=== PATIENT | female | born 1980 | race American Indian/Alaskan Native ===

== ENCOUNTER 2018-10-21 18:16 | Emergency (ER) | payer MEDICAID ==
[2018-10-21 19:11] LABS: Basophils # (Auto) 0.1 K/mm3 (0.0-0.1); Basophils % (Auto) 1.1 % (0.0-1.8); Eosinophils % (Auto) 0.4 % (0.0-4.3); Hematocrit 35.8 % (30.3-42.9); Hemoglobin 11.8 gm/dl (10.1-14.3); Lymphocytes # (Auto) 2.4 K/mm3 (1.2-5.4); Lymphocytes % (Auto) 37.1 % (13.4-35.0); Mean Corpuscular HGB Conc 33 % (30-34); Mean Corpuscular Volume 92 fl (79-97); Monocytes # (Auto) 0.3 K/mm3 (0.0-0.8); Monocytes % (Auto) 4.9 % (0.0-7.3); Platelet Count 146 K/mm3 (140-440); Red Blood Count 3.89 M/mm3 (3.65-5.03); Red Cell Distribution Width 14.1 % (13.2-15.2)
[2018-10-21 19:32] LABS: Alanine Aminotransferase 10 units/L (7-56); BUN/Creatinine Ratio 14; Blood Urea Nitrogen 11 mg/dL (7-17); Calcium 9.6 mg/dL (8.4-10.2); Hemolysis Index 4
--- NOTE | 2018-10-21 20:33 | XRay Report ---
CHEST 2 VIEWS INDICATION / CLINICAL INFORMATION: MAIN: Chest Pain started this morning. COMPARISON: None available. FINDINGS: SUPPORT DEVICES: None. HEART / MEDIASTINUM: No significant abnormality. LUNGS / PLEURA: No significant pulmonary or pleural abnormality. No pneumothorax. ADDITIONAL FINDINGS: No significant additional findings. IMPRESSION: 1. No acute findings. Signer Name: Martín Hurley MD Signed: 10/21/2018 8:28 PM Workstation Name: [id number]
[2018-10-21] MEDS ORDERED: MORPHINE IV STA ×2 (22:22→23:59)
[2018-10-21] MEDS ORDERED: ZOFRAN IV STA (22:22)
[2018-10-21] MEDS ORDERED: NACL 0.9% 1000 ML 1,000 ML IV ONE (22:22)
--- NOTE | 2018-10-21 23:14 | Cat Scan Report ---
CT ABDOMEN AND PELVIS WITH CONTRAST HISTORY: Lower abdominal pain. COMPARISON: No relevant prior imaging study available. TECHNIQUE: Axial, coronal and sagittal CT imaging of the abdomen and pelvis was performed after inje ction of 100 mL Omnipaque [address] scans at this location are performed using CT dose re duction for ALARA by means of automated exposure control. FINDINGS: LOWER CHEST: No significant abnormality. LIVER: No significant abnormality. BILIARY: No significant abnormality. PANCREAS: No significant abnormality. SPLEEN: No significant abnormality. ADRENALS: No significant abnormality. 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 No additional significant abnormality. GI TRACT: No significant abnormality of the stomach, small bowel or colon. The appendix is not well- visualized. No suspicious infiltrate changes are noted along the right lower quadrant. PERITONEUM: No free fluid. No free air. No fluid collection. LYMPH NODES: No significant adenopathy. VASCULATURE: No significant abnormality. URINARY BLADDER: No significant abnormality. REPRODUCTIVE ORGANS: No significant abnormality. ADDITIONAL FINDINGS: None. SKELETAL SYSTEM: No significant abnormality. IMPRESSION: 1. No acute abnormality of the abdomen or pelvis. 2. Additional findings as above. Signer Name: Matt Perez MD Signed: 10/21/2018 11:10 PM Workstation Name: [id number]
[2018-10-21] MEDS ORDERED: TORADOL IV STA (23:59)
--- NOTE | 2018-10-22 | Emergency Department Report ---
ED Abdominal Pain HPI - General Chief Complaint: Chest Pain Stated Complaint: CHEST PAIN Time Seen by Provider: 10/21/18 22:45 Source: patient Mode of arrival: Wheelchair Limitations: No Limitations - History of Present Illness MD Complaint: abdominal pain -: Sudden, hour(s) Location: LLQ Radiation: none, LLQ Severity scale (0 -10): 7 Quality: sharp Consistency: constant Improves With: nothing Worsens With: movement Associated Symptoms: denies: nausea, vomiting, diarrhea, constipation, dysuria, hematemesis, hematuria, anorexia, syncope - Related Data Previous Rx's Medication Instructions Recorded Last Taken Type Hyoscyamine Subl [Levsin Sl 0.125 0.125 mg SL Q6HR PRN #20 tab 10/21/18 Unknown Rx TAB] Ketorolac [Toradol] 10 mg PO Q6H PRN #15 tablet 10/21/18 Unknown Rx Ondansetron [Zofran ODT TAB] 8 mg PO Q12HR #14 tab.rapdis 10/21/18 Unknown Rx Ciprofloxacin HCl [Ciprofloxacin 500 mg PO Q12HR #20 tab 10/22/18 Unknown Rx TAB] Phenazopyridine [Pyridium] 200 mg PO TID #9 tab 10/22/18 Unknown Rx Allergies Allergy/AdvReac Type Severity Reaction Status Date / Time No Known Allergies Allergy Verified 10/21/18 18:20 ED Review of Systems ROS: Stated complaint: CHEST PAIN Other details as noted in HPI Comment: All other systems reviewed and negative ED Past Medical Hx - Social History Smoking Status: Current Every Day Smoker Substance Use Type: Alcohol - Medications Home Medications: Home Medications Medication Instructions Recorded Confirmed Last Taken Type Hyoscyamine Subl [Levsin Sl 0.125 0.125 mg SL Q6HR PRN #20 tab 10/21/18 Unknown Rx TAB] Ketorolac [Toradol] 10 mg PO Q6H PRN #15 tablet 10/21/18 Unknown Rx Ondansetron [Zofran ODT TAB] 8 mg PO Q12HR #14 tab.rapdis 10/21/18 Unknown Rx Ciprofloxacin HCl [Ciprofloxacin 500 mg PO Q12HR #20 tab 10/22/18 Unknown Rx TAB] Phenazopyridine [Pyridium] 200 mg PO TID #9 tab 10/22/18 Unknown Rx ED Physical Exam - General Limitations: No Limitations General appearance: alert, in no apparent distress - Head Head exam: Present: atraumatic, normocephalic - Eye Eye exam: Present: normal appearance - ENT ENT exam: Present: normal exam, mucous membranes moist - Neck Neck exam: Present: normal inspection - Respiratory Respiratory exam: Present: normal lung sounds bilaterally. Absent: respiratory distress - Cardiovascular Cardiovascular Exam: Present: regular rate, normal rhythm. Absent: systolic murmur, diastolic murmur, rubs, gallop - GI/Abdominal GI/Abdominal exam: Present: soft, tenderness (left lower quadrant. Rovsing sign is negative. T sign, no pereira chakraborty, ozzy and mcburney's,), normal bowel sounds - Extremities Exam Extremities exam: Present: normal inspection, full ROM, normal capillary refill - Back Exam Back exam: Present: normal inspection - Neurological Exam Neurological exam: Present: alert, oriented X3, CN II-XII intact - Psychiatric Psychiatric exam: Present: normal affect, normal mood - Skin Skin exam: Present: warm, dry, intact, normal color. Absent: rash ED Course Vital Signs 10/21/18 10/21/18 10/21/18 18:19 22:52 23:22 Temperature 98.7 F Pulse Rate 73 Respiratory 16 16 18 Rate Blood Pressure 138/94 O2 Sat by Pulse 99 Oximetry 10/22/18 10/22/18 10/22/18 00:06 00:08 00:31 Temperature Pulse Rate Respiratory 16 16 18 Rate Blood Pressure O2 Sat by Pulse Oximetry ED Medical Decision Making - Lab Data Result diagrams: 10/21/18 18:36 10/21/18 18:36 - Radiology Data Radiology results: report reviewed (CT scan is negative for acute pathology) - Medical Decision Making 37-year-old gentleman female with onset of left lower quadrant abdominal pain. CT scan laboratory data showed no acute findings. She did report having bloody urine. Urinalysis did show evidence of urinary tract infection. Will be covered. She is tolerating oral with no complications. There is no nausea or vomiting. Pain is controlled with with with the medication. Icing it. She does report some pressure to the to the bladder region with urination Critical care attestation.: If time is entered above; I have spent that time in minutes in the direct care of this critically ill patient, excluding procedure time. ED Disposition Clinical Impression: Abdominal pain, UTI (urinary tract infection) Disposition: DC- TO HOME OR SELFCARE Is pt being admited?: No Condition: Stable Instructions: Phenazopyridine (By mouth), Urinary Tract Infection in Women (ED), Dysuria (ED), Abdominal Pain (ED) Additional Instructions: Please be sure to follow with the [facility] for your abdominal pain. Follow [facility] for urinary tract infection. Reevaluation Prescriptions: Ciprofloxacin HCl [Ciprofloxacin TAB] 500 mg PO Q12HR #20 tab Hyoscyamine Subl [Levsin Sl 0.125 TAB] 0.125 mg SL Q6HR PRN #20 tab PRN Reason: abdominal cramps and spasms Phenazopyridine [Pyridium] 200 mg PO TID #9 tab Ketorolac [Toradol] 10 mg PO Q6H PRN #15 tablet PRN Reason: Pain Ondansetron [Zofran ODT TAB] 8 mg PO Q12HR #14 tab.rapdis Referrals: [facility] [Provider Group] - 3-5 Days HORATIO BLANKA DHILLON MD [Primary Care Provider] - 3-5 Days
[2018-10-22 00:17] LABS: Bacteria,Urine 1+ /HPF (Negative); Bilirubin,Urine NEG (Negative); Blood,Urine LG (Negative); Color,Urine Yellow (Yellow); Mucus,Urine 3+ /HPF; Urobilinogen,Urine < 2.0 mg/dL (<2.0)
[2018-10-22 00:19] LABS: RBC,Urine > 182.0 /HPF (0.0-6.0)
[2018-10-22] MEDS ORDERED: LEVAQUIN PO STA (00:54)
[2018-10-22 02:05] VITALS: BP 132/78
== END 2018-10-22 01:40 | disposition home or self-care (01) ==
LOC: ED 18:16
DX: N39.0 Urinary tract infection, site not specified (principal); F17.200 Nicotine dependence, unspecified, uncomplicated; Z79.899 Other long term (current) drug therapy
CPT/HCPCS: 36415; 71046; 74177; 80053; 81001; 83690; 84484; 84703; 85025; 87086; 96374; 96375; 96376; 99284; J1885; J2270; J2405; J7030; Q9967; 96361

== ENCOUNTER 2020-04-03 11:30 | Emergency (ER) | payer SELFPAY ==
[2020-04-03 11:37] VITALS: BP 128/80
--- NOTE | 2020-04-03 11:42 | Event Note ---
ED Screening Note ED Screening Note: pain and swelling right ankle sp rolling it this AM This initial assessment/diagnostic orders/clinical plan/treatment(s) is/are subject to change based on patients health status, clinical progression and re- assessment by fellow clinical providers in the ED. Further treatment and workup at subsequent clinical providers discretion. Patient/guardian urged not to elope from the ED as their condition may be serious if not clinically assessed and managed. Initial orders include: xray ro fx
--- NOTE | 2020-04-03 12:00 | XRay Report ---
RIGHT ANKLE 3 VIEW(S) INDICATION / CLINICAL INFORMATION: SWELLING/ PAIN COMPARISON: None available. FINDINGS: BONES / JOINT(S): No acute fracture or subluxation. Ankle mortise is symmetric. No significant arthri tis. SOFT TISSUES: There is soft tissue swelling of the medial hindfoot. ADDITIONAL FINDINGS: None. IMPRESSION: Soft tissue swelling of the medial hindfoot. No acute osseous findings identified. Signer Name: Martín Suarez MD Signed: 04/03/2020 11:55 AM Workstation Name: [id number]
[2020-04-03] MEDS ORDERED: IBUPROFEN 800 MG TAB PO ONE (12:03)
--- NOTE | 2020-04-03 12:04 | Emergency Department Report ---
ED Extremity Problem HPI - General Chief complaint: Extremity Injury, Lower Stated complaint: RT FOOT PAIN Time Seen by Provider: 04/03/20 11:38 Source: patient Mode of arrival: Wheelchair Limitations: No Limitations - History of Present Illness Initial comments: 39 yo sp rolling her r ankle this am. no fall. co swelling and pain with ambulation no other injury MD Complaint: extremity pain -: Gradual Location: right History of Same: No Radiation: none Quality: aching Consistency: constant Improves with: nothing Worsens with: walking Associated Symptoms: denies other symptoms - Related Data Previous Rx's Medication Instructions Recorded Last Taken Type Hyoscyamine Subl [Levsin Sl 0.125 0.125 mg SL Q6HR PRN #20 tab 10/21/18 Unknown Rx TAB] Ketorolac [Toradol] 10 mg PO Q6H PRN #15 tablet 10/21/18 Unknown Rx Ondansetron [Zofran ODT TAB] 8 mg PO Q12HR #14 tab.rapdis 10/21/18 Unknown Rx Ciprofloxacin HCl [Ciprofloxacin 500 mg PO Q12HR #20 tab 10/22/18 Unknown Rx TAB] Phenazopyridine [Pyridium] 200 mg PO TID #9 tab 10/22/18 Unknown Rx Naproxen [Naprosyn TAB] 500 mg PO BID #20 tablet 09/24/19 Unknown Rx Nitrofurantoin Sterling/M-Cryst 100 mg PO Q12HR #20 capsule 09/24/19 Unknown Rx [Macrobid CAP] Ibuprofen [Motrin] 800 mg PO Q8HR PRN #30 tablet 04/03/20 Unknown Rx Allergies Allergy/AdvReac Type Severity Reaction Status Date / Time No Known Allergies Allergy Verified 04/03/20 11:33 ED Review of Systems ROS: Stated complaint: RT FOOT PAIN Other details as noted in HPI Comment: All other systems reviewed and negative ED Past Medical Hx - Past Medical History Previous Medical History?: Yes Hx Asthma: Yes - Surgical History Past Surgical History?: Yes Additional Surgical History: ectopic - Family History Family history: no significant - Social History Smoking Status: Never Smoker Substance Use Type: None - Medications Home Medications: Home Medications Medication Instructions Recorded Confirmed Last Taken Type Hyoscyamine Subl [Levsin Sl 0.125 0.125 mg SL Q6HR PRN #20 tab 10/21/18 Unknown Rx TAB] Ketorolac [Toradol] 10 mg PO Q6H PRN #15 tablet 10/21/18 Unknown Rx Ondansetron [Zofran ODT TAB] 8 mg PO Q12HR #14 tab.rapdis 10/21/18 Unknown Rx Ciprofloxacin HCl [Ciprofloxacin 500 mg PO Q12HR #20 tab 10/22/18 Unknown Rx TAB] Phenazopyridine [Pyridium] 200 mg PO TID #9 tab 10/22/18 Unknown Rx Naproxen [Naprosyn TAB] 500 mg PO BID #20 tablet 09/24/19 Unknown Rx Nitrofurantoin Sterling/M-Cryst 100 mg PO Q12HR #20 capsule 09/24/19 Unknown Rx [Macrobid CAP] Ibuprofen [Motrin] 800 mg PO Q8HR PRN #30 tablet 04/03/20 Unknown Rx ED Physical Exam - General Limitations: No Limitations General appearance: alert, in no apparent distress - Head Head exam: Present: atraumatic, normocephalic - Eye Eye exam: Present: normal appearance - ENT ENT exam: Present: mucous membranes moist - Neck Neck exam: Present: normal inspection - Respiratory Respiratory exam: Present: normal lung sounds bilaterally. Absent: respiratory distress - Cardiovascular Cardiovascular Exam: Present: regular rate, normal rhythm. Absent: systolic murmur, diastolic murmur, rubs, gallop - GI/Abdominal GI/Abdominal exam: Present: soft, normal bowel sounds - Extremities Exam Extremities exam: Present: normal inspection - Expanded Lower Extremity Exam Right Knee exam: Present: normal inspection Lower Leg exam: Present: normal inspection Ankle exam: Present: tenderness, swelling. Absent: abrasion, laceration, ecchymosis, deformity, crepidus, dislocation Foot/Toe exam: Present: normal inspection Neuro vascular tendon exam: Present: no vascular compromise - Back Exam Back exam: Present: normal inspection - Neurological Exam Neurological exam: Present: alert, oriented X3 - Psychiatric Psychiatric exam: Present: normal affect, normal mood - Skin Skin exam: Present: warm, dry, intact, normal color. Absent: rash ED Course Vital Signs 04/03/20 11:36 Temperature 98.3 F Pulse Rate 109 H Respiratory 18 Rate Blood Pressure 128/80 O2 Sat by Pulse 95 Oximetry ED Medical Decision Making - Radiology Data Radiology results: report reviewed, image reviewed nap - Medical Decision Making xray neg ice/crutches motrin po dc home with medical management and ortho follow up remains n/v intact verbalizes understanding dc poc Vital Signs 04/03/20 11:36 Temperature 98.3 F Pulse Rate 109 H Respiratory 18 Rate Blood Pressure 128/80 O2 Sat by Pulse 95 Oximetry HR on exam 100 - Differential Diagnosis ro fx Critical care attestation.: If time is entered above; I have spent that time in minutes in the direct care of this critically ill patient, excluding procedure time. ED Disposition Clinical Impression: Ankle sprain Disposition: DC- TO HOME OR SELFCARE Is pt being admited?: No Does the pt Need Aspirin: No Condition: Stable Instructions: Ankle Sprain, Ankle Sprain, Kris-no-Nocn Additional Instructions: ice rest elevate epifanio and crutches for 72 hours then follow up with ortho md referral below tylenol for pain med as ordered today Prescriptions: Ibuprofen [Motrin] 800 mg PO Q8HR PRN #30 tablet PRN Reason: Pain, Moderate (4-6) Referrals: ROSSANA ACOSTA MD [Staff Physician] - 3-5 Days TONE BUTLER MD [Staff Physician] - 3-5 Days Time of Disposition: 12:04
== END 2020-04-03 13:19 | disposition home or self-care (01) ==
LOC: ED 11:30
DX: S93.401A Sprain of unspecified ligament of right ankle, initial encounter (principal); J45.909 Unspecified asthma, uncomplicated; Z79.899 Other long term (current) drug therapy; Z98.890 Other specified postprocedural states; X58.XXXA Exposure to other specified factors, initial encounter; Y93.89 Activity, other specified; Y92.89 Other specified places as the place of occurrence of the external cause; Y99.8 Other external cause status